=== PATIENT | male | born 1980 | race Caucasian/White ===

== ENCOUNTER 2019-01-03 20:29 | Emergency (ER) | payer MEDICAID, OTHER ==
[~2019-01-03] VITALS: Ht 170.2 cm; Wt 84.8 kg
[~2019-01-03 20:29] MED LIST: CLIN300C10 PO; PRED20TA PO
[2019-01-03 20:34] VITALS: Ht 170.2 cm; Wt 84.8 kg
[2019-01-03] MEDS ORDERED: SOD CHLORIDE 0.9% 1,000 ML IV STA (21:46)
[2019-01-03] MEDS ORDERED: DEXAMETHASONE 10 MG/ML 1 ML INJ IV ONE (22:00)
[2019-01-03] MEDS ORDERED: KETOROLAC 30 MG INJ IV STA (22:08)
[2019-01-03] MEDS ORDERED: IOHEXOL 300MG/ML 150 ML BTL ONE (23:47)
[2019-01-03] MEDS ORDERED: SOD CHLORIDE 0.9% 100 ML ONE (23:47)
[2019-01-04 01:45] VITALS: BP 134/80; PULSE 69; RESP 18
== END 2019-01-04 01:45 | disposition home or self-care (01) ==
LOC: FTE 20:29
DX: R13.10 Dysphagia, unspecified (principal); I10 Essential (primary) hypertension
CPT/HCPCS: 36415; 70491; 80053; 81001; 83690; 85025; 96361; 96374; 96375; J1100; J1885; J7030; Q9967; Z7502; Z7610